=== PATIENT | female | born 1995 | race Caucasian/White ===

== ENCOUNTER 2017-02-16 14:17 | Emergency (ER) | payer SELFPAY ==
[2017-02-16 14:17] VITALS: BMI 37.1
[2017-02-16 14:43] VITALS: PULSE 69; RESP 18; TEMP 97.9
[2017-02-16] MEDS ORDERED: Sodium Chloride 0.9% 1,000 ML IV ONE (15:23)
--- NOTE | 2017-02-16 15:53 | RAD ---
PROCEDURE: CHEST RADIOGRAPH, 1 VIEW HISTORY: Cough COMPARISON: 10/21/2015 FINDINGS: LUNGS: Clear. PLEURA: No pneumothorax or pleural fluid seen. CARDIOVASCULAR: Normal. OSSEOUS STRUCTURES: No significant abnormalities. VISUALIZED UPPER ABDOMEN: Normal. OTHER FINDINGS: None. IMPRESSION: No active disease.
[2017-02-16 16:17] LABS: RBC URINE 1 /hpf (0-3); URINE BILIRUBIN NEGATIVE (NEGATIVE); URINE BLOOD NEGATIVE (NEGATIVE); URINE COLOR Yellow (YELLOW); URINE GLUCOSE (UA) NORMAL (Normal); URINE KETONE NEGATIVE (NEGATIVE); URINE LEUKOCYTE ESTERASE NEG Leu/uL (Negative); URINE PROTEIN NEGATIVE (NEGATIVE); URINE UROBILINOGEN NORMAL mg/dL (0.2-1.0); WBC URINE 2 /hpf (0-5)
[2017-02-16] MEDS ORDERED: Sodium Chloride 0.9% 1,000 ML ONE (16:24)
[2017-02-16 16:46] LABS: BASO # 0.1 K/uL (0.0-0.2); BASO % 0.8 % (0.0-2.0); EOS # 0.1 K/uL (0.0-0.7); EOS % 0.7 % (0.0-4.0); LYMPH # 2.2 K/uL (1.0-4.3); LYMPH % 26.2 % (20.0-40.0); MEAN CELL VOLUME 88.5 fL (81.0-99.0); MEAN CORPUSCULAR HEMOGLOBIN 29.5 pg (27.0-31.0); MEAN CORPUSCULAR HGB CONC 33.3 g/dL (33.0-37.0); MEAN PLATELET VOLUME 8.1 fL (7.2-11.7); MONO # 0.5 K/uL (0.0-0.8); MONO % 6.3 % (0.0-10.0); NRBC % 0.1 % (0.0-2.0); WHITE BLOOD COUNT 8.5 K/uL (4.8-10.8)
[2017-02-16 16:48] LABS: ALKALINE PHOSPHATASE 69 U/L (38-126); ALT/SGPT 35 U/L (9-52); AST/SGOT 23 U/L (14-36); BILIRUBIN,TOTAL 0.5 mg/dL (0.2-1.3); BLOOD UREA NITROGEN 8 mg/dL (7-17); CALCIUM 8.7 mg/dl (8.6-10.4); CARBON DIOXIDE 30 mmol/L (22-30); CHLORIDE 103 mmol/L (98-107); GFR AFRICAN-AMERICAN > 60; GLUCOSE,RANDOM 86 mg/dL (65-105); POTASSIUM 3.8 mmol/L (3.6-5.2); SODIUM 142 mmol/L (132-148)
[2017-02-16 16:56] VITALS: BP 101/62; O2SAT 100
--- NOTE | 2017-02-16 17:12 | C.PDOC ---
History Of Present Illness Pt state that she ran out of her Keppra yesterday and have been having an aura/ feeling strange since then. No seizure. She has been having URI symptoms for 2 weeks. Time Seen by Provider: 02/16/17 14:47 Chief Complaint (Nursing): Medical Clearance History Per: Patient Onset/Duration Of Symptoms: Days (1) Current Symptoms Are (Timing): Still Present Severity: Moderate Additional History Per: Prior Records Past Medical History Reviewed: Historical Data, Nursing Documentation, Vital Signs Vital Signs: Last Vital Signs Temp 97.9 F 02/16/17 14:33 Pulse 69 02/16/17 16:55 Resp 18 02/16/17 16:55 BP 101/62 02/16/17 16:55 Pulse Ox 100 02/16/17 16:55 - Medical History PMH: Fractures (RIGHT FOOT), Seizures - [facility] Procedures APPLICATION OF SPLINT (10/10/12) Family History: States: Unknown Family Hx - Social History Hx Tobacco Use: No Hx Alcohol Use: No Hx Substance Use: No - Immunization History Hx Tetanus Toxoid Vaccination: No Hx Influenza Vaccination: No Hx Pneumococcal Vaccination: No Review Of Systems Except As Marked, All Systems Reviewed And Found Negative. Constitutional: Negative for: Fever ENT: Positive for: Nose Congestion Respiratory: Positive for: Cough. Negative for: Shortness of Breath, Hemoptysis Gastrointestinal: Negative for: Vomiting, Abdominal Pain, Diarrhea Musculoskeletal: Negative for: Neck Pain, Back Pain Skin: Negative for: Rash Neurological: Positive for: Headache. Negative for: Weakness, Numbness, Seizures, Altered Mental Status Physical Exam - Physical Exam Appears: Non-toxic, No Acute Distress Skin: Normal Color, Warm, Dry, No Rash Head: Atraumatic, Normacephalic Eye(s): bilateral: Normal Inspection, PERRL, EOMI Neck: Normal ROM, Supple Cardiovascular: Rhythm Regular Respiratory: Normal Breath Sounds, No Accessory Muscle Use Gastrointestinal/Abdominal: Soft, No Tenderness Extremity: Normal ROM Neurological/Psych: Oriented x3, Normal Cognition, Normal Motor, Normal Sensation ED Course And Treatment - Laboratory Results Result Diagrams: 02/16/17 16:30 02/16/17 16:30 Lab Interpretation: No Acute Changes Urine POC: Negative O2 Sat by Pulse Oximetry: 100 Pulse Ox Interpretation: Normal - Radiology CXR: Viewed By Me, Read By Radiologist CXR Interpretation: Yes: No Acute Disease Progress - Interventions Interventions:: Observation, Intravenous fluid - Medications Administered Oral: Other (Keppra) Intravenous: NSAID - Data Reviewed Data Reviewed: Lab, Diagnostic imaging, Old records - Patient Status Patient status: Mostly improved - Continuity of Care Discussed patient case with:: Patient, ED Nurse - Patient Plan Patient Plan: Discharge, F/U with PCP, Continue present meds Disposition Counseled Patient/Family Regarding: Studies Performed, Diagnosis, Need For Followup, Rx Given - Disposition Referrals: [facility] [Outside] Disposition: HOME/ ROUTINE Disposition Time: 17:13 Condition: IMPROVED Additional Instructions: Follow up in the clinic within 1-2 weeks for further evaluation and treatment. Return to the ER if you develop a seizure, shortness of breath, worsening of symptoms or if you have any other concerns. Prescriptions: Levetiracetam [Keppra] 500 mg PO BID #60 tablet Instructions: Epilepsy (ED), Cold Symptoms (ED) Forms: Gen Discharge Inst Uzbek Print Language: KYRGYZ - Clinical Impression Clinical Impression: Medication refill, Epilepsy, URI (upper respiratory infection)
== END 2017-02-16 17:30 | disposition home or self-care (01) ==
LOC: C.ER 14:17
DX: G40.909 Epilepsy, unspecified, not intractable, without status epilepticus (principal); J06.9 Acute upper respiratory infection, unspecified; Z76.0 Encounter for issue of repeat prescription
CPT/HCPCS: 71010; 80053; 81001; 83735; 84703; 85025; 96361; 96374; 99285; J1885; J7040

== ENCOUNTER 2017-04-08 16:40 | Emergency (ER) | payer SELFPAY ==
[2017-04-08 16:40] VITALS: BMI 37.1
[2017-04-08 17:11] VITALS: BP 108/71; PULSE 87; RESP 18; TEMP 97.6; O2SAT 99
--- NOTE | 2017-04-08 18:22 | C.PDOC ---
History Of Present Illness 21 y/o female presents for med refill for keppra, last taken 3 days ago, last seizure few weeks ago, no other complaints. pt seen in ED 02/16 for med refill and has not followed up in clinic. Time Seen by Provider: 04/08/17 17:30 Chief Complaint (Nursing): Med Refill History Per: Patient History/Exam Limitations: no limitations Onset/Duration Of Symptoms: Days Past Medical History Reviewed: Historical Data, Nursing Documentation, Vital Signs Vital Signs: Last Vital Signs Temp 97.6 F 04/08/17 17:10 Pulse 87 04/08/17 17:10 Resp 18 04/08/17 17:10 BP 108/71 04/08/17 17:10 Pulse Ox 99 04/08/17 18:41 - Medical History PMH: Fractures (RIGHT FOOT), Seizures Denies: Asthma, HTN, Chronic Kidney Disease Other PMH: epilepsy - [facility] Procedures APPLICATION OF SPLINT (10/10/12) Family History: States: Unknown Family Hx - Social History Hx Tobacco Use: No Hx Alcohol Use: No Hx Substance Use: No - Immunization History Hx Tetanus Toxoid Vaccination: No Hx Influenza Vaccination: No Hx Pneumococcal Vaccination: No Review Of Systems Constitutional: Negative for: Fever, Chills Cardiovascular: Negative for: Chest Pain Respiratory: Negative for: Cough, Shortness of Breath Gastrointestinal: Negative for: Abdominal Pain Musculoskeletal: Negative for: Neck Pain, Back Pain Skin: Negative for: Rash Neurological: Negative for: Weakness, Numbness, Headache Physical Exam - Physical Exam Appears: Non-toxic, No Acute Distress, Other (obese) Skin: Warm, Dry Head: Atraumatic, Normacephalic Eye(s): bilateral: Normal Inspection Neck: Supple Cardiovascular: Rhythm Regular, No Murmur Respiratory: No Decreased Breath Sounds, No Rales, No Rhonchi, No Wheezing Gastrointestinal/Abdominal: Soft, No Tenderness Neurological/Psych: Oriented x3, Normal Speech, Normal Cognition, Normal Cranial Nerves, Normal Motor, Normal Sensation ED Course And Treatment O2 Sat by Pulse Oximetry: 99 Medical Decision Making Medical Decision Making: no recent seizure- will get 1g keppra here in ed, d.c with rx, pt received refill in ed on 02/16/17. pt to be advised she needs to go to clinic for further refills. Disposition Counseled Patient/Family Regarding: Studies Performed, Diagnosis, Need For Followup, Rx Given - Disposition Referrals: [facility] [Outside] Disposition: HOME/ ROUTINE Disposition Time: 18:38 Condition: STABLE Additional Instructions: You must follow up in medical clinic for further evaluation of your epilepsy and for medication refills. Debe hacer un seguimiento en la clnica mdica para miguelangel evaluacin ms profunda de ramirez epilepsia y para el reabastecimiento de medicamentos. Instructions: Epilepsy (ED) Forms: [facility] (South [place]ese), Gen Discharge Inst Yakut, [employer] (Yakut) Print Language: SLOVAK - Clinical Impression Clinical Impression: Medication refill, Epilepsy
== END 2017-04-08 19:00 | disposition home or self-care (01) ==
LOC: C.ER 16:40
DX: Z76.0 Encounter for issue of repeat prescription (principal); G40.909 Epilepsy, unspecified, not intractable, without status epilepticus